=== PATIENT | female | born 1975 | race Caucasian/White ===

== ENCOUNTER 2019-06-19 22:20 | Emergency (ER) | payer BC ==
[~2019-06-19] VITALS: Ht 152.4 cm; Wt 56.7 kg
--- NOTE | 2019-06-19 23:04 | NUR ---
PATIENT WAS MSE BY DR HALE IN ROOM 04B. PATIENT A & O X3
[2019-06-19] MEDS ORDERED: MORPHINE SULFATE 2 MG/1 ML DISP.SYRIN IM ONE (23:15)
[2019-06-19] MEDS ORDERED: ONDANSETRON ODT 4 MG TAB.RAPDIS SL ONE (23:15)
[2019-06-19] MEDS ORDERED: ONDANSETRON ODT 4 MG TAB.RAPDIS ONE (23:19)
[2019-06-19] MEDS ORDERED: MORPHINE SULFATE 2 MG/1 ML DISP.SYRIN ONE (23:19)
[2019-06-19 23:42] LABS: *BILIRUBIN,URIN NEGATIVE (NEGATIVE); *BLOOD, URINE 1+ (NEGATIVE); *CLARITY,URINE CLEAR (CLEAR); *COLOR,URINE YELLOW (YELLOW); *KETONES,URINE NEGATIVE (NEGATIVE); *UROBILINOGEN,URINE 0.2 E.U./dl (NORMAL); LEUKOCYTE ESTERASE ,URINE 2+ (NEGATIVE); NITRITE, URINE NEGATIVE (NEGATIVE); UGLUCOSE NEGATIVE (NEGATIVE)
[2019-06-19 23:45] LABS: *URINE HCG, QUAL NEGATIVE (NEGATIVE)
[2019-06-19 23:54] LABS: BACTERIA,URINE MODERATE /HPF (NONE SEEN); SQUAMOUS EPITHELIAL CELL,UR MODERATE /HPF (NONE SEEN); WBC,URINE 20-50 /HPF (0-3)
[2019-06-20] MEDS ORDERED: MORPHINE SULFATE 2 MG/1 ML DISP.SYRIN ONE (00:27)
[2019-06-20] MEDS ORDERED: MORPHINE SULFATE 2 MG/1 ML DISP.SYRIN IM ONE (00:30)
[2019-06-20] MEDS ORDERED: ONDANSETRON ODT 4 MG TAB.RAPDIS ONE (00:35)
[2019-06-20] MEDS ORDERED: ONDANSETRON ODT 4 MG TAB.RAPDIS SL ONE (00:45)
--- NOTE | 2019-06-20 02:58 | NUR ---
Patient is resting comfortably in bed with eyes closed
[2019-06-20 04:10] VITALS: BP 110/65
--- NOTE | 2019-06-20 04:10 | NUR ---
Patient discharged to home in stable conditon. Written and verbal after care instructions given. Patient verbalizes understanding of instructions. Patient was picked up by her mother.
== END 2019-06-20 04:10 | disposition home or self-care (01) ==
LOC: ER 22:26
DX: M54.41 Lumbago with sciatica, right side (principal); G89.29 Other chronic pain; F32.9 Major depressive disorder, single episode, unspecified; E03.9 Hypothyroidism, unspecified; F17.200 Nicotine dependence, unspecified, uncomplicated; F12.10 Cannabis abuse, uncomplicated
CPT/HCPCS: 72100; 81000; 81001; 84703; 87086; 96372 ×2; 99284; J2270 ×2; A4663; Q0162